=== PATIENT | female | born 1960 | race Caucasian/White ===

== ENCOUNTER 2022-04-26 23:22 | Emergency (ER) | payer BC, MEDICAID ==
[~2022-04-26] VITALS: Ht 167.6 cm; Wt 65.9 kg
[2022-04-26 23:27] VITALS: BP 147/95
[2022-04-27] MEDS ORDERED: KETOROLAC TROMETH 30 MG/ML 1ML VIAL IM ONE (00:15)
[2022-04-27] MEDS ORDERED: DICL50TA4 PO (02:34)
[2022-04-27] MEDS ORDERED: CYCL-838 PO (02:34)
== END 2022-04-27 02:54 | disposition home or self-care (01) ==
LOC: ER 23:22
DX: S16.1XXA Strain of muscle, fascia and tendon at neck level, initial encounter (principal); M50.30 Other cervical disc degeneration, unspecified cervical region; Y08.89XA Assault by other specified means, initial encounter; Y93.89 Activity, other specified; Y92.89 Other specified places as the place of occurrence of the external cause; Y99.8 Other external cause status
CPT/HCPCS: 72125; 96372; 99284; J1885

== ENCOUNTER 2022-09-10 09:50 | Inpatient (IN) | payer MEDICAID ==
[~2022-09-10] VITALS: Ht 167.6 cm; Wt 54.9 kg
[~2022-09-10 09:50] MED LIST: CYCL-838 PO; DICL50TA4 PO
[2022-09-10] MEDS ORDERED: KETOROLAC TROMETH 30 MG/ML 1ML VIAL IM ONE (15:45)
[2022-09-10 15:55] LABS: Hematocrit 33.9 % (36.0-46.0); Hemoglobin 11.6 g/dL (12.2-16.2); Mean Corpuscular Hgb Conc. 34.1 g/dL (32.0-36.0); Mean Corpuscular Volume 90.8 fL (80.0-100.0); Red Blood Cells 3.73 10^6/uL (4.0-5.20); Red Cell Distribution Width 14.5 % (11.8-14.3)
[2022-09-10 16:14] LABS: Albumin 1.7 g/dL (3.4-5.0); BUN/Creatinine Ratio 25.5
[2022-09-10 16:18] LABS: Bilirubin, Total 3.1 mg/dL (0.2-1.0)
[2022-09-10 16:37] LABS: White Blood Cell 32.8 10^3/uL (4.4-10.8)
[2022-09-10 16:38] LABS: Basophils % (manual) 0 (0.0-2.0); Blast Cells 0; Myelocytes % 0; Promyelocytes % 0; Reactive Lymphocytes 0
[2022-09-10 17:33] LABS: Band Neutrophils % (manual) 4; Eosinophils % (manual) 1 (0-7); Lymphocytes % (manual) 7 (10.0-50.0); Metamyelocytes % 1; Monocytes % (manual) 5 (0-12)
[2022-09-10] MEDS ORDERED: VANCOMYCIN 1GM/250ML 250 ML IV ONE (18:00)
[2022-09-10] MEDS ORDERED: PIPERACILLIN-TAZOB 3.375GM 100 ML IV ONE (18:00)
[2022-09-10] MEDS ORDERED: ALBUTEROL SULF 2.5 MG/0.5ML(0.5%) NEB SOLN NEB PRN (19:30)
[2022-09-10] MEDS ORDERED: ONDANSETRON HCL 4 MG/2 ML VIAL IV PRN (19:30)
[2022-09-10] MEDS ORDERED: ACETAMINOPHEN 325 MG TAB PO PRN (19:30)
[2022-09-10] MEDS ORDERED: TEMAZEPAM 15 MG CAP PO PRN (19:30)
[2022-09-10] MEDS: AZITHROMYCIN 500MG/ 250ML 250 ML IV SCH (20:21)
[2022-09-10 23:00] VITALS: BP 142/65
[2022-09-10] MEDS: cefTRIAXone 1GM/50ML D5W 50 ML IV SCH (23:15)
[2022-09-11] MEDS: AZITHROMYCIN 500MG/ 250ML 250 ML IV SCH ×2 (00:26→22:22)
[2022-09-11] MEDS: HYDROcodone-ACET 5/325MG TAB PO PRN ×3 (01:24→14:41)
[2022-09-11 06:03] LABS: Hematocrit 30.5 % (36.0-46.0); Hemoglobin 10.2 g/dL (12.2-16.2); Mean Corpuscular Hemoglobin 30.5 pg (28.0-32.0); Mean Corpuscular Hgb Conc. 33.6 g/dL (32.0-36.0); Mean Corpuscular Volume 90.9 fL (80.0-100.0); Red Blood Cells 3.36 10^6/uL (4.0-5.20); Red Cell Distribution Width 14.1 % (11.8-14.3)
[2022-09-11 06:23] LABS: Albumin 1.5 g/dL (3.4-5.0); BUN/Creatinine Ratio 27.9; Calcium 7.7 mg/dL (8.5-10.1); Potassium 3.6 mmol/L (3.5-5.1)
[2022-09-11 06:26] LABS: Bilirubin, Total 2.9 mg/dL (0.2-1.0); Total Protein 5.6 g/dL (6.4-8.2)
[2022-09-11 07:07] LABS: Basophils % (manual) 0 (0.0-2.0); Blast Cells 0; Metamyelocytes % 0; Promyelocytes % 0; Reactive Lymphocytes 0
[2022-09-11 09:11] LABS: Band Neutrophils % (manual) 9; Eosinophils % (manual) 1 (0-7); Lymphocytes % (manual) 12 (10.0-50.0); Monocytes % (manual) 3 (0-12); Myelocytes % 2
[2022-09-11] MEDS: cefTRIAXone 1GM/50ML D5W 50 ML IV SCH (09:58)
[2022-09-11] MEDS ORDERED: ENOXAPARIN SOD 40 MG/0.4 ML SYRINGE SC SCH (10:00)
[2022-09-11] MEDS ORDERED: IOHEXOL 300 MG/ML 100ML BOTTLE IJ ONE (15:08)
[2022-09-11] MEDS ORDERED: HYDROcodone-ACET 5/325MG TAB PO PRN (15:15)
[2022-09-11] MEDS ORDERED: VANCOMYCIN PER PHARMACY 0 MG IV SCH (15:15)
[2022-09-11] MEDS ORDERED: VANCOMYCIN 1GM/250ML 250 ML IV ONE (15:30)
[2022-09-11] MEDS: MORPHINE SULFATE INJ 2 MG/ml SYRG IV PRN (17:00)
[2022-09-11] MEDS: SODIUM CHLORIDE 0.9% 1,000 ML IV SCH (17:34)
[2022-09-11] MEDS: CEFTRIAXONE SODIUM 2 GM in D5W 5% 50 ML IV SCH (21:00)
[2022-09-11 22:00] VITALS: BP 140/87
[2022-09-12] MEDS: MORPHINE SULFATE INJ 2 MG/ml SYRG IV PRN (01:05)
[2022-09-12] MEDS: SODIUM CHLORIDE 0.9% 1,000 ML IV SCH ×3 (01:15→21:15)
[2022-09-12] MEDS: VANCOMYCIN 1GM/250ML 250 ML IV SCH ×2 (04:38→18:41)
[2022-09-12] MEDS: HYDROcodone-ACET 10/325MG TAB PO PRN ×3 (04:43→18:42)
[2022-09-12 05:00] VITALS: BP 156/89
[2022-09-12 07:55] LABS: Hemoglobin 10.1 g/dL (12.2-16.2)
[2022-09-12 08:00] LABS: Hematocrit 30.4 % (36.0-46.0); Mean Corpuscular Hemoglobin 30.1 pg (28.0-32.0); Mean Corpuscular Hgb Conc. 33.1 g/dL (32.0-36.0); Mean Corpuscular Volume 91.2 fL (80.0-100.0); Red Blood Cells 3.34 10^6/uL (4.0-5.20); Red Cell Distribution Width 14.3 % (11.8-14.3); White Blood Cell 21.8 10^3/uL (4.4-10.8)
[2022-09-12 08:10] LABS: Potassium 3.6 mmol/L (3.5-5.1)
[2022-09-12 08:23] LABS: Albumin 1.5 g/dL (3.4-5.0); BUN/Creatinine Ratio 16.7; Bilirubin, Total 1.7 mg/dL (0.2-1.0); Calcium 7.8 mg/dL (8.5-10.1); Total Protein 5.8 g/dL (6.4-8.2)
[2022-09-12 08:30] LABS: Band Neutrophils % (manual) 0; Basophils % (manual) 0 (0.0-2.0); Blast Cells 0; Eosinophils % (manual) 0 (0-7); Metamyelocytes % 0; Myelocytes % 0; Promyelocytes % 0; Reactive Lymphocytes 0
[2022-09-12 09:00] VITALS: BP 146/85
[2022-09-12] MEDS: CEFTRIAXONE SODIUM 2 GM in D5W 5% 50 ML IV SCH (10:00)
[2022-09-12] MEDS: CEFEPIME 2 GM in SODIUM CHL 0.9% 50 ML IV SCH ×2 (12:30→22:04)
[2022-09-12 13:00] VITALS: BP 139/80
[2022-09-12 13:04] LABS: Lymphocytes % (manual) 15 (10.0-50.0); Monocytes % (manual) 1 (0-12)
[2022-09-12 17:00] VITALS: BP 146/86
[2022-09-12 20:10] VITALS: BP 138/72
[2022-09-12 22:00] VITALS: BP 138/72
[2022-09-12] MEDS: AZITHROMYCIN 500MG/ 250ML 250 ML IV SCH (22:04)
[2022-09-13] MEDS: HYDROcodone-ACET 10/325MG TAB PO PRN ×4 (01:40→20:45)
[2022-09-13] MEDS: CEFEPIME 2 GM in SODIUM CHL 0.9% 50 ML IV SCH ×3 (04:23→21:11)
[2022-09-13 04:40] LABS: Hemoglobin 9.9 g/dL (12.2-16.2)
[2022-09-13 04:44] LABS: Hematocrit 29.9 % (36.0-46.0); Mean Corpuscular Hemoglobin 30.3 pg (28.0-32.0); Mean Corpuscular Hgb Conc. 33.1 g/dL (32.0-36.0); Mean Corpuscular Volume 91.5 fL (80.0-100.0); Red Blood Cells 3.27 10^6/uL (4.0-5.20); Red Cell Distribution Width 14.5 % (11.8-14.3); White Blood Cell 21.4 10^3/uL (4.4-10.8)
[2022-09-13 05:00] VITALS: BP 138/82
[2022-09-13 05:00] LABS: Basophils % (manual) 0 (0.0-2.0); Blast Cells 0; Myelocytes % 0; Promyelocytes % 0; Reactive Lymphocytes 0
[2022-09-13 05:04] LABS: BUN/Creatinine Ratio 22.6; Calcium 8.2 mg/dL (8.5-10.1); Potassium 3.7 mmol/L (3.5-5.1)
[2022-09-13] MEDS: VANCOMYCIN 1GM/250ML 250 ML IV SCH ×2 (05:22→14:44)
[2022-09-13] MEDS: SODIUM CHLORIDE 0.9% 1,000 ML IV SCH ×2 (08:29→18:18)
[2022-09-13 09:00] VITALS: BP 145/83
[2022-09-13 09:16] LABS: Band Neutrophils % (manual) 1; Eosinophils % (manual) 1 (0-7); Lymphocytes % (manual) 13 (10.0-50.0); Metamyelocytes % 2; Monocytes % (manual) 5 (0-12)
[2022-09-13 17:00] VITALS: BP 149/91
[2022-09-13] MEDS ORDERED: POLYETHYLENE GLYCOL 17 GM PWDR PO PRN (19:45)
[2022-09-13 22:00] VITALS: BP 136/76
[2022-09-13] MEDS: AZITHROMYCIN 500MG/ 250ML 250 ML IV SCH (22:32)
[2022-09-14] MEDS: VANCOMYCIN 1GM/250ML 250 ML IV SCH ×2 (00:22→11:19)
[2022-09-14] MEDS: HYDROcodone-ACET 10/325MG TAB PO PRN ×2 (03:23→19:12)
[2022-09-14] MEDS: SODIUM CHLORIDE 0.9% 1,000 ML IV SCH ×3 (03:23→23:15)
[2022-09-14 03:55] VITALS: BP 136/76
[2022-09-14] MEDS: CEFEPIME 2 GM in SODIUM CHL 0.9% 50 ML IV SCH ×3 (04:28→20:17)
[2022-09-14 04:40] VITALS: BP 135/77
[2022-09-14 09:00] VITALS: BP 152/85
[2022-09-14] MEDS: MORPHINE SULFATE INJ 2 MG/ml SYRG IV PRN ×2 (09:25→15:30)
[2022-09-14 13:00] VITALS: BP 157/86
[2022-09-14 17:00] VITALS: BP 123/76
[2022-09-14] MEDS: VANCOMYCIN 750mg/250ml 250 ML IV SCH (19:11)
[2022-09-14 22:00] VITALS: BP 128/50
[2022-09-14] MEDS: AZITHROMYCIN 500MG/ 250ML 250 ML IV SCH (22:39)
[2022-09-15] MEDS: VANCOMYCIN 750mg/250ml 250 ML IV SCH ×3 (02:44→23:07)
[2022-09-15] MEDS: HYDROcodone-ACET 10/325MG TAB PO PRN ×4 (02:45→23:22)
[2022-09-15] MEDS: CEFEPIME 2 GM in SODIUM CHL 0.9% 50 ML IV SCH ×3 (04:39→20:00)
[2022-09-15 05:00] VITALS: BP 142/65
[2022-09-15 06:46] LABS: Hematocrit 29.9 % (36.0-46.0); Hemoglobin 10.2 g/dL (12.2-16.2); Mean Corpuscular Hemoglobin 31.1 pg (28.0-32.0); Mean Corpuscular Volume 91.3 fL (80.0-100.0); Red Blood Cells 3.27 10^6/uL (4.0-5.20); Red Cell Distribution Width 14.4 % (11.8-14.3)
[2022-09-15 06:58] LABS: Band Neutrophils % (manual) 0; Basophils % (manual) 0 (0.0-2.0); Blast Cells 0; Eosinophils % (manual) 0 (0-7); Myelocytes % 0; Promyelocytes % 0; Reactive Lymphocytes 0
[2022-09-15 08:30] VITALS: BP 131/75
[2022-09-15 08:51] LABS: Lymphocytes % (manual) 11 (10.0-50.0); Metamyelocytes % 1; Monocytes % (manual) 4 (0-12)
[2022-09-15] MEDS: SODIUM CHLORIDE 0.9% 1,000 ML IV SCH ×2 (09:57→19:15)
[2022-09-15 13:21] VITALS: BP 120/81
[2022-09-15] MEDS: MORPHINE SULFATE INJ 2 MG/ml SYRG IV PRN (14:41)
[2022-09-15 17:00] VITALS: BP 149/68
[2022-09-15 17:14] LABS: % Iron Saturation 8.1 % (15-50)
[2022-09-15 22:00] VITALS: BP 130/72
[2022-09-15] MEDS: AZITHROMYCIN 500MG/ 250ML 250 ML IV SCH (23:50)
[2022-09-16] MEDS: CEFEPIME 2 GM in SODIUM CHL 0.9% 50 ML IV SCH ×3 (03:57→20:41)
[2022-09-16 05:00] VITALS: BP 133/77
[2022-09-16] MEDS: SODIUM CHLORIDE 0.9% 1,000 ML IV SCH ×2 (05:15→15:15)
[2022-09-16] MEDS: VANCOMYCIN 750mg/250ml 250 ML IV SCH (05:19)
[2022-09-16] MEDS: HYDROcodone-ACET 10/325MG TAB PO PRN ×3 (06:46→20:43)
[2022-09-16 08:00] VITALS: BP 138/76
[2022-09-16 12:00] VITALS: BP 159/86
[2022-09-16] MEDS ORDERED: VANCOMYCIN 1GM/250ML 250 ML IV SCH (12:00)
[2022-09-16] MEDS: VANCOMYCIN 1GM/250ML 250 ML IV SCH ×2 (14:40→22:12)
[2022-09-16 16:00] VITALS: BP 146/75
[2022-09-16 22:00] VITALS: BP 155/79
[2022-09-16] MEDS: AZITHROMYCIN 500MG/ 250ML 250 ML IV SCH (23:10)
[2022-09-17] MEDS: SODIUM CHLORIDE 0.9% 1,000 ML IV SCH ×3 (01:15→21:15)
[2022-09-17] MEDS: CEFEPIME 2 GM in SODIUM CHL 0.9% 50 ML IV SCH ×3 (04:29→20:00)
[2022-09-17 05:00] VITALS: BP 142/82
[2022-09-17] MEDS: VANCOMYCIN 1GM/250ML 250 ML IV SCH ×4 (06:08→22:00)
[2022-09-17 06:50] LABS: BUN/Creatinine Ratio 17.5; Calcium 8.7 mg/dL (8.5-10.1); Potassium 4.6 mmol/L (3.5-5.1)
[2022-09-17 09:00] VITALS: BP 144/78
[2022-09-17 09:18] LABS: INR 1.02 (0.9-1.15)
[2022-09-17] MEDS: HYDROcodone-ACET 10/325MG TAB PO PRN ×3 (09:50→23:31)
[2022-09-17 11:20] LABS: Ferritin 353.2 ng/mL (10-322)
[2022-09-17 13:00] VITALS: BP 124/68
[2022-09-17 17:00] VITALS: BP 119/78
[2022-09-17 22:00] VITALS: BP 138/78
[2022-09-17] MEDS: AZITHROMYCIN 500MG/ 250ML 250 ML IV SCH (22:00)
[2022-09-18] MEDS: MORPHINE SULFATE INJ 2 MG/ml SYRG IV PRN ×2 (03:58→13:32)
[2022-09-18] MEDS: CEFEPIME 2 GM in SODIUM CHL 0.9% 50 ML IV SCH ×3 (03:58→21:02)
[2022-09-18 05:00] VITALS: BP 145/81
[2022-09-18] MEDS: VANCOMYCIN 1GM/250ML 250 ML IV SCH ×3 (05:59→22:09)
[2022-09-18] MEDS: SODIUM CHLORIDE 0.9% 1,000 ML IV SCH ×2 (07:15→11:15)
[2022-09-18 09:00] VITALS: BP 145/100
[2022-09-18] MEDS: HYDROcodone-ACET 10/325MG TAB PO PRN ×3 (09:34→21:03)
[2022-09-18] MEDS ORDERED: ENOXAPARIN SOD 60 MG/0.6 ML SYRINGE SC ONE (11:15)
[2022-09-18 13:00] VITALS: BP 143/93
[2022-09-18 17:00] VITALS: BP 140/82
[2022-09-18 22:00] VITALS: BP 133/83
[2022-09-18] MEDS: AZITHROMYCIN 500MG/ 250ML 250 ML IV SCH (22:10)
[2022-09-19] MEDS: SODIUM CHLORIDE 0.9% 1,000 ML IV SCH (04:16)
[2022-09-19] MEDS: CEFEPIME 2 GM in SODIUM CHL 0.9% 50 ML IV SCH ×2 (04:16→14:41)
[2022-09-19] MEDS: HYDROcodone-ACET 10/325MG TAB PO PRN ×2 (04:17→14:41)
[2022-09-19 05:00] VITALS: BP 115/92
[2022-09-19 05:38] LABS: Basophils # (auto) 0.1 10 ^3/uL (0-0.2); Eosinophils # (auto) 0.2 10 ^3/uL (0-0.8); Lymphocytes # (auto) 1.4 10 ^3/uL (0.4-5.4); Monocytes # (auto) 1.1 10 ^3/uL (0-1.3); Monocytes % (auto) 9.8 % (0.0-12.0); Neutrophils # (auto) 8.2 10 ^3/uL (1.6-8.6)
[2022-09-19 05:41] LABS: Basophils % (auto) 0.7 % (0.0-2.0); Eosinophils % (auto) 2.2 % (0.0-7.0); Hematocrit 33.5 % (36.0-46.0); Hemoglobin 11.1 g/dL (12.2-16.2); Lymphocytes % (auto) 12.9 % (10.0-50.0); Mean Corpuscular Hemoglobin 30.9 pg (28.0-32.0); Mean Corpuscular Hgb Conc. 33.2 g/dL (32.0-36.0); Mean Corpuscular Volume 93.2 fL (80.0-100.0); Neutrophils % (auto) 74.4 % (37.0-80.0); Nucleated Red Blood Cells % 0.1 %; Red Cell Distribution Width 13.9 % (11.8-14.3)
[2022-09-19] MEDS: VANCOMYCIN 1GM/250ML 250 ML IV SCH (06:00)
[2022-09-19 06:01] LABS: BUN/Creatinine Ratio 16.7; Calcium 9.5 mg/dL (8.5-10.1); Potassium 4.7 mmol/L (3.5-5.1)
[2022-09-19 09:00] VITALS: BP 127/76
[2022-09-19] MEDS ORDERED: FAMOTIDINE 20 MG TAB PO SCH (10:00)
[2022-09-19 16:10] VITALS: BP 135/84
[2022-09-19] MEDS: MORPHINE SULFATE INJ 2 MG/ml SYRG IV PRN (16:10)
== END 2022-09-19 18:41 | disposition short-term general hospital (02) | DRG 720 ==
LOC: ER 09:50 → EDBD 09:50 → OVERFLOW 19:40 → WEST WING 09-11 18:31
PROVIDERS: ADMIT Nurse Practitioner; ATTEND Nurse Practitioner Acute Care
PROC: 0W963ZZ Drainage of Neck, Percutaneous Approach (ICD-10-PCS; principal; 2022-09-17)
DX: A41.9 Sepsis, unspecified organism (principal); S12.112A Nondisplaced Type II dens fracture, initial encounter for closed fracture; E43 Unspecified severe protein-calorie malnutrition; J18.9 Pneumonia, unspecified organism; R17 Unspecified jaundice; L02.11 Cutaneous abscess of neck; M48.02 Spinal stenosis, cervical region; G95.20 Unspecified cord compression; R74.01 Elevation of levels of liver transaminase levels; Z20.822 Contact with and (suspected) exposure to COVID-19; X58.XXXA Exposure to other specified factors, initial encounter; M54.12 Radiculopathy, cervical region; R65.20 Severe sepsis without septic shock; D75.839 Thrombocytosis, unspecified; Z68.1 Body mass index [BMI] 19.9 or less, adult; Z90.710 Acquired absence of both cervix and uterus; Y93.89 Activity, other specified; Y92.89 Other specified places as the place of occurrence of the external cause; Y99.8 Other external cause status
CPT/HCPCS: 36415; 70551; 71045; 72040; 72100; 72141; 73030; 76536; 76705; 76942; 80048; 80053; 80202; 82565; 82607; 82728; 83540; 83550; 83605; 84484; 85007; 85025; 85027; 85610; 85652; 85730; 86141; 86703; 86880; 87040; 87205; 87426; 87804; 93005; 96372; 97163; G0378; J0696; J1885; J2543; J7060